=== PATIENT | male | born 1990 | race Caucasian/White ===

== ENCOUNTER 2022-12-06 08:24 | Emergency (ER) | payer OTHER, SELFPAY ==
--- NOTE | 2022-12-06 08:44 | ED.URI ---
HPI - URI/Sore Throat General Chief Complaint: Upper Respiratory Infection Stated Complaint: chest congestion,cough Source: patient and RN notes reviewed Mode of arrival: ambulatory Limitations: no limitations History of Present Illness HPI Narrative: 32 y/o male presented for c/o sinus drainage, cough, sore throat for 4 days. States cough is raspy, worse at night, and occasionally productive of yellow sputum. has similar symptoms. Denies sob, wheezing, n/v/d/f/c. Taking DayQuil. MD elicited complaint: cough Related Data Home Medications Medication Instructions Recorded Confirmed No Home Medications 12/06/22 12/06/22 Allergies Allergy/AdvReac Type Severity Reaction Status Date / Time No Known Allergies Allergy Verified 12/06/22 08:31 Review of Systems Review of Systems: CONSTITUTIONAL: Denies malaise, chills, sweats, fever EYES: Denies visual changes, redness, or discharge ENT: Reports rhinorrhea, congestion, denies sinus pain, otalgia CARDIOVASCULAR: Denies chest pain, palpitations, edema RESPIRATORY: Reports cough, post nasal drainage. Denies dyspnea GASTROINTESTINAL: Denies abdominal pain, nausea, vomiting, diarrhea SKIN: Denies rash or itching MUSCULOSKELETAL: Denies myalgia NEUROLOGIC: Denies headache [facility] Past Medical History Medical History (Updated 12/06/22 @ 08:59 by Elda Gordon, GLADIS) No pertinent past medical history Exam Narrative: GENERAL: mildly Ill-appearing, nontoxic EYES: PERRLA, conjunctivae clear ENT: Mucous membranes moist. TMs pearly [place] with dull light reflex bilaterally; no tragal tenderness. Oropharynx erythematous without lesions or exudate, no tonsillar enlargement, no drooling, no hoarseness, no trismus, uvula midline. No tripod positioning, muffled voice, soft palate or pharyngeal wall bulging NECK: Supple. No lymphadenopathy CHEST: Clear to auscultation, breath sounds equal. No wheezing, rhonchi, rales, or stridor. No respiratory distress, speaks in full sentences. HEART: Regular rate and rhythm. No murmur heard. SKIN: Warm, moist no rash. NEURO: Alert and oriented x3. PSYCH: Normal mood and affect Course Course Emergency Course: Patient is aware of diagnosis, understands and agrees to treatment plan. Anticipatory guidance given. Patient agrees to follow-up as directed and is aware of reasons to seek care at the emergency department. Portions of this record may have been created with voice recognition software Level of Care: Express Care Visit Vital Signs Vital signs: reviewed MDM - URI/Sore Throat MDM Narrative Medical decision making narrative: Negative strep result reviewed with patient. Will do home covid test. BP rechecked and is improved. Advised to avoid decongestants due to elevated blood pressure, and establish with a PCP. Verbalizes understanding. Advised supportive measures and signs/symptoms to go to the ER. Pt is appropriate for outpt treatment and f/u. Differential Diagnosis Differential diagnosis: Likely upper respiratory infection, sinusitis, viral infection and pharyngitis Discharge Plan Discharge Clinical Impression: Viral infection Patient Disposition: Home, Self-Care Condition: Stable Instructions: Antibiotic Form Additional Instructions: Your blood pressure reading was elevated (above 120/80) please follow-up with your primary care provider for further evaluation and management. Rapid strep swab was negative today You will be notified in a few days if the culture comes back positive for strep, and appropriate antibiotics will be called in at that time. if symptoms are due to a viral illness, it is not treated with antibiotics. Viral symptoms can be present for up to 10-14 days. Recommend Flonase spray and Zyrtec for sinus congestion Cough syrup may cause drowsiness; avoid driving or take it at night time. Tylenol every 8 hours as needed for pain/fever Soft foods, cool liquids, warm tea. Gargle with warm s
[2022-12-06 08:45] VITALS: BP 168/83; PULSE 83; RESP 18; TEMP 36.6; O2SAT 100
[2022-12-06 08:59] VITALS: BP 142/88
== END 2022-12-06 09:00 | disposition home or self-care (01) ==
PROVIDERS: Emergency Provider Nurse Practitioner Family
DX: B34.9 Viral infection, unspecified (principal)
CPT/HCPCS: 87081; 87880; 99213; G0463